=== PATIENT | male | born 1965 | race Caucasian/White ===

== ENCOUNTER 2022-09-27 09:51 | Emergency (ER) | payer OTHER, SELFPAY ==
[2022-09-27 09:57] VITALS: BP 161/101; PULSE 109; RESP 16; TEMP 36.6; O2SAT 95; BMI 20.2
--- NOTE | 2022-09-27 10:18 | ED.GENADULT ---
HPI - General Adult General Chief complaint: General Medical Stated complaint: chest pain Time Seen by Provider: 09/27/22 10:08 Source: patient and family Mode of arrival: ambulatory Limitations: no limitations History of Present Illness HPI narrative: 57-year-old male came in for evaluation of left-sided chest pain. 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 Patient smokes 1 pack a day of regular cigarette. Related Data Allergies Allergy/AdvReac Type Severity Reaction Status Date / Time No Known Allergies Allergy Verified 09/27/22 10:16 Review of Systems Review of Systems: All other systems are reviewed and are negative Constitutional: Reports as per HPI and Reports no additional constitutional complaints Eyes: Reports as per HPI and Reports no additional eye complaints Reports system reviewed and no additional complaints, except as documented Cardiovascular: Reports as per HPI and Reports no additional cardiovascular complaints Respiratory: Reports as per HPI and Reports no additional respiratory complaints Gastrointestinal: Reports as per HPI and Reports no additional gastrointestinal complaints Genitourinary: Reports no additional female genitourinary complaints Musculoskeletal: Reports no additional musculoskeletal complaints Skin/Breast: Reports system reviewed and no additional complaints, except as docu Psychiatric: Reports no additional psychiatric complaints Endocrine: Reports no additional endocrine complaints Hematologic/Lymphatic: Reports no additional hematologic/lymphatic complaints Allergic/Immunologic: Reports no additional allergic/immunologic complaints Reports system reviewed and no additional complaints, except as documented and Reports Abnormal speech present PMFSH Social History Social History Alcohol intake: current Alcohol intake frequency: holidays/special occasions only Smoked in Last 30 Days: Yes Use of substances other than those prescribed or required for medical reasons: Yes Substance Use Type: Marijuana Substance Use Frequency: Daily Advance Directives: No Advance Directives Information Provided: Yes Physical Exam ED Vital Signs: Vital Signs - 24 hr 09/27/22 09:57 09/27/22 13:46 Temperature 97.8 F Pulse Rate 109 H 53 Respiratory Rate 16 14 Blood Pressure 161/101 H 135/86 Pulse Oximetry 95 98 Oxygen Delivery Method Room Air Room Air BMI result Body Mass Index 20.2 Vital signs have been reviewed as appeared to be correct. Blood pressure normal. Heart rate normal. Respiration rate normal. Temperature normal. Oxygen saturation normal. Appearance: Anxious, Alert. Oriented X3. No acute distress. Head: Normal external exam. Normocephalic. Atraumatic. No Johnson signs noted. No raccoon eyes noted Eyes: PERRLA. EOMI. Conjunctiva and sclera normal. Eyelids normal. ENT: TM's Normal. Pharynx normal. Uvula midline. Moist mucous membranes. No trismus noted. No drooling noted. No muffled voice noted. Neck: Normal inspection. Neck supple. FROM. No adenopathy. Thyroid Normal. No meningeal signs. No neck mass noted. CVS: Normal heart rate and rhythm. Heart sound normal. No murmurs noted. Pulses normal throughout. Respiratory: No respiratory distress. Painless inspiration. Breath sounds normal. No wheezes/rales/rhonchi noted. Chest nontender. No accessory muscle usage noted or decreased air movement noted. Abdomen: Soft and nontender. Bowel sounds normal in all 4 quadrants. No distention noted. No organomegaly noted. No visible injury noted. Back: No CVA tenderness. Full range of motion noted. Skin: Skin warm and dry. Normal skin color. Normal skin turgor. No rashes/lesions/lacerations noted. Extremities: No lower extremity edema. Extremities exhibit normal range of motion. Extremities nontender. Neuro: Oriented X 3. Cranial nerve exam: II-XII are grossly intact No motor deficit. No sensory deficit. Reflexes normal. Course Reevaluation(s) Reevaluation #1: While the nurse was inserting the IV access patient become diaphoretic, pale, bradycardia at 28 beats per minute, patient had a brief tonic clonic activity witnessed by the nerve then patient regained consciousness few minutes after, patient was evaluated by me after the episode patient back to his baseline. Time: 10:41 Reevaluation #2: Patient feels more relaxed after was given Ativan, patient's symptoms are related to stress that the patient found in the new job that he just started 3 days ago. Patient will be quitting the job. Time: 15:31 Medications Administered Discontinued Medications Generic Name Dose Route Start Last Admin Trade Name Freq PRN Reason Stop Dose Admin Sodium Chloride 1,000 mls @ 999 mls/hr 09/27/22 10:17 09/27/22 12:03 Ns IV 09/27/22 11:17 Infused .Q1H1M ONE Infusion Sodium Chloride 1,000 mls @ 999 mls/hr 09/27/22 10:41 09/27/22 12:03 Ns IV 09/27/22 11:41 Infused .Q1H1M ONE Infusion Lorazepam 2 mg 09/27/22 10:17 09/27/22 10:26 Lorazepam 1 Mg Tablet PO 09/27/22 10:18 2 mg ONCE ONE Administration Medical Decision Making Differential Diagnosis Differential Diagnoses: The differential diagnosis associated with the presentation includes (ACS, dehydration, electrolyte abnormalities, anemia, anxiety, depression.) Admission/Observation Consideration of admission/observation: Escalation of care including admission/observation considered Lab Data MDM Lab Attestation statement: I reviewed the patient's lab results. 09/27/22 10:37 09/27/22 10:37 Labs: Lab Results 09/27/22 09/27/22 09/27/22 Range/Units 10:37 10:37 10:37 WBC 8.5 (4.8-10.8) X10*3/uL RBC 5.20 (4.60-5.80) X10*6/uL Hgb 15.8 (14.0-18.0) g/dl Hct 45.2 (42.0-52.0) % MCV 86.9 (80.0-98.0) fL MCH 30.4 (27.0-33.0) pg MCHC 35.0 (31.0-36.0) g/dl RDW 13.2 (11.0-16.0) % Plt Count 285 (160-400) X10*3/uL MPV 9.6 (9.4-12.4) fL Immature Gran % (Auto) 0.2 (0.0-0.4) % Neut % (Auto) 59.0 (45-73) % Lymph % (Auto) 27.0 (20-40) % Swain % (Auto) 10.7 (2-11) % Eos % (Auto) 2.4 (0-4) % Baso % (Auto) 0.7 (0-2) % Lymph # (Auto) 2.3 (1.2-4.9) X10*3/uL Swain # (Auto) 0.9 (0.1-1.2) X10*3/uL Eos # (Auto) 0.2 (0.0-0.4) X10*3/uL Baso # (Auto) 0.1 (0.0-0.2) X10*3/uL Abs Immat Gran (auto) 0.02 (0.00-0.03) X10*3/uL Absolute Neuts (auto) 5.0 (2.0-8.3) x10*3/uL Absolute Nucleated RBC 0.000 (0.0-0.012) X10*3/uL Nucleated RBC % (auto) 0.0 (0.0-0.2) /100WBC Sodium 139 (135-145) mmol/L Potassium 4.1 (3.3-5.1) mmol/L Chloride 107 (96-108) mmol/L Carbon Dioxide 20 L (22-29) mmol/L Anion Gap 16 (12-20) BUN 13 (9-16) mg/dL Creatinine 0.91 (0.5-1.4) mg/dL Estim Creat Clear Calc 77.1 Estimated GFR > 60 Random Glucose 102 (60-115) mg/dL Calcium 10.1 (8.4-10.2) mg/dL Total Bilirubin 2.7 H (0.0-1.0) mg/dL Direct Bilirubin 0.5 (0.0-0.5) mg/dL AST 22 (5-37) U/L ALT 12 (0-40) U/L Alkaline Phosphatase 86 (39-117) U/L Troponin I High Sens 6.9 (<3.5-35.0) ng/L B-Natriuretic Peptide (<100) pg/mL Total Protein 8.0 (6.5-8.0) g/dL Albumin 4.5 (3.5-5.0) g/dL Lipase 12 (8-78) U/L 09/27/22 Range/Units 10:37 WBC (4.8-10.8) X10*3/uL RBC (4.60-5.80) X10*6/uL Hgb (14.0-18.0) g/dl Hct (42.0-52.0) % MCV (80.0-98.0) fL MCH (27.0-33.0) pg MCHC (31.0-36.0) g/dl RDW (11.0-16.0) % Plt Count (160-400) X10*3/uL MPV (9.4-12.4) fL Immature Gran % (Auto) (0.0-0.4) % Neut % (Auto) (45-73) % Lymph % (Auto) (20-40) % Swain % (Auto) (2-11) % Eos % (Auto) (0-4) % Baso % (Auto) (0-2) % Lymph # (Auto) (1.2-4.9) X10*3/uL Swain # (Auto) (0.1-1.2) X10*3/uL Eos # (Auto) (0.0-0.4) X10*3/uL Baso # (Auto) (0.0-0.2) X10*3/uL Abs Immat Gran (auto) (0.00-0.03) X10*3/uL Absolute Neuts (auto) (2.0-8.3) x10*3/uL Absolute Nucleated RBC (0.0-0.012) X10*3/uL Nucleated RBC % (auto) (0.0-0.2) /100WBC Sodium (135-145) mmol/L Potassium (3.3-5.1) mmol/L Chloride (96-108) mmol/L Carbon Dioxide (22-29) mmol/L Anion Gap (12-20) BUN (9-16) mg/dL Creatinine (0.5-1.4) mg/dL Estim Creat Clear Calc Estimated GFR Random Glucose (60-115) mg/dL Calcium (8.4-10.2) mg/dL Total Bilirubin (0.0-1.0) mg/dL Direct Bilirubin (0.0-0.5) mg/dL AST (5-37) U/L ALT (0-40) U/L Alkaline Phosphatase (39-117) U/L Troponin I High Sens (<3.5-35.0) ng/L B-Natriuretic Peptide 37 (<100) pg/mL Total Protein (6.5-8.0) g/dL Albumin (3.5-5.0) g/dL Lipase (8-78) U/L Independent Interpretation I performed an independent interpretation of an: EKG (Sinus rhythm at 87 beats per minutes with frequent PVCs, LVH, normal intervals.) and Plain X-Ray (No acute intrathoracic pathology.) Radiology Impression Discussion of test interpretation with radiology: I have reviewed the radiologist's reading. Discharge Plan Discharge Clinical Impression: Anxiety about health, Stress and adjustment reaction Patient Disposition: Home, Self-Care Instructions: Anxiety (ED) Referrals: Frantz Tellez MD [Primary Care Provider] - Stand Alone Forms: Work/School Release
--- NOTE | 2022-09-27 11:00 | PC.NURSE ---
Addendum entered by Irina Harris RN 09/27/22 11:02: post event pt c/o worsening chest tightness. MD aware Original Note: PT ambulated in from home with . during IV insertion pt became pale, diaphoretic, HR dropped to low 20s, began with tonic-clonic movements. pt was rolled onto his side, MD made aware of event lasting only several of seconds. pt HR then stabilized, pt alert and oriented to baseline. HR strip printed and placed in chart.
[2022-09-27 13:46] VITALS: BP 135/86; PULSE 53; RESP 14; O2SAT 98
== END 2022-09-27 15:59 | disposition home or self-care (01) ==
PROVIDERS: Emergency Provider Emergency Medicine; PCP Internal Medicine
DX: F43.22 Adjustment disorder with anxiety (principal); F17.210 Nicotine dependence, cigarettes, uncomplicated; F12.90 Cannabis use, unspecified, uncomplicated; Z72.89 Other problems related to lifestyle; Z56.6 Other physical and mental strain related to work
CPT/HCPCS: 36415; 71045; 80048; 80076; 83690; 83880; 84484; 85025; 93005; 96360; 99284

== ENCOUNTER 2023-11-18 09:31 | Outpatient (REF) | payer OTHER, SELFPAY ==
--- NOTE | ~2023-11-18 | XR_ITS ---
EXAMINATION: XR HIP, LEFT CLINICAL INFORMATION: Left hip pain. COMPARISON: None available. TECHNIQUE: AP radiograph of the pelvis. AP and frog-lateral views of the left hip. FINDINGS: Superolateral joint space narrowing with small marginal osteophytes. Small chronic ossification along the posterior superior acetabular rim. No acute fracture or malalignment. Standard appearance of the right total hip arthroplasty. XR/XR hip LT min 2V IMPRESSION: [id number] left hip osteoarthritis. No acute abnormality. Electronically signed by: Atilio Roman MD 11/24/2023 10:44 AM EDT
== END 2023-11-18 09:32 | disposition home or self-care (01) ==
LOC: HO.XRAY 09:31
PROVIDERS: PCP Internal Medicine; Visit Provider Physician Assistant
DX: M25.552 Pain in left hip (principal)
CPT/HCPCS: 73502

== ENCOUNTER 2023-11-18 10:02 | Outpatient (AMB) | payer OTHER, SELFPAY ==
--- NOTE | 2023-11-18 10:06 | MHC.OFFVIS ---
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 Patient reports his left hip pain has been present for about 3 years. He was previously seen at [facility] and had a right hip replacement on 08/2015. Currently he has shooting pain that radiates down his leg. He states his symptoms are similar to his right hip prior to his replacement. Finds no relief with ibuprofen or Tylenol. Hx of degenerative disc disease. 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 He was previously seen at [facility] where he had a right CRISTIANA on 08/2015. He currently states he has shooting pain in his groin and buttock region that radiates down to his leg. He reports his symptoms are similar to his right hip prior to his replacement. His pain is aggravated with stairs, prolonged walking and getting in and out of his car. He finds no relief with ibuprofen or Tylenol. He has a history of degenerative disc disease. [facility] Surgical History (Updated 11/18/23 @ 10:09 by GANESH Cedillo) History of right hip replacement Social History (Updated 11/18/23 @ 10:10 by GANESH Cedillo) Alcohol intake: current Alcohol intake frequency: holidays/special occasions only Patient Tobacco Use Status: Current everyday Tobacco user Substance Use Type: Marijuana Current occupational status: unemployed Review of Systems Const All systems reviewed & are unremarkable except as noted in HPI and below Physical Exam Vital Signs: BMI result Body Mass Index 22.0 Const General: cooperative, healthy appearing, comfortable, no acute distress, well developed and alert Orientation/consciousness: patient oriented x3 HEENT Head: Yes normal to inspection, Yes normocephalic and Yes atraumatic Eyes General: appearance normal, both eyes and all related structures Resp Effort & Inspection: normal respiratory effort and able to speak in complete sentences Cardio Rate: regular rate Peripheral pulses: Peripheral pulses 2+ throughout GI Palpation (GI): Soft to palpation Skin Lesions: no lesions Rashes: no rashes Neuro General: patient oriented x3 Extrem Other: Left hip: Normal to inspection, ambulates with a slight limp. Has mild discomfort with internal and extension rotation of hip. No significant stiffness. Mild discomfort with hip flexion against resistance. NVI. Assessment & Plan Assessment & Plan (1) Left hip pain: Code(s): M25.552 - Pain in left hip Category: Medical Plan I did offer course physical therapy help work on hip stabilization exercises declined. We also discussed anti-inflammatories which he was not interested in as well as steroid injection which he declined. If symptoms persist or worsen, patient will contact the office to meet with Dr. Burger to discuss possible surgical intervention, otherwise follow-up as needed. Orders: Orders XR pelvis 1-2V Today M25.559 - Pain in unspecified hip XR hip LT min 2V Today M25.552 - Pain in left hip Patient Instructions: Scribed for Catalina Lala PA-C, by Matthew Wetzel medical assistant instructor, on 11/18/2023 at 10:15 AM EST.? I, Catalina Lala PA-C, have personally reviewed and agree with the information entered by the scribe. Coding Level of Care Code New Pt Level 3 (70136) Diagnoses Left hip pain M25.552
[2023-11-18 10:08] VITALS: BMI 22.0
== END 2023-11-18 10:59 | disposition home or self-care (01) ==
PROVIDERS: PCP Internal Medicine; Visit Provider Physician Assistant
DX: M25.552 Pain in left hip (principal)
CPT/HCPCS: 99203

== ENCOUNTER 2023-12-18 07:14 | Outpatient (REF) | payer OTHER, SELFPAY ==
--- NOTE | ~2023-12-18 | CT_ITS ---
EXAMINATION: CT CHEST WITHOUT CONTRAST CLINICAL INFORMATION: Disorder arteries COMPARISON: None available. TECHNIQUE: Multidetector volumetric CT imaging of the chest was done. Axial MIP volume rendering provided. Sagittal and coronal reformatted images were obtained. This CT examination was performed using dose optimization techniques as appropriate, variously including the following: *Automated exposure control *Adjustment of mA and/or kV according to patient size (this includes techniques or standardized protocols for targeted exams where dose is matched to indication/reason for exam; i.e. extremities or head) *Use of iterative reconstruction technique DLP: 138 mGy-cm FINDINGS: Submitted for interpretation on February 19, 2024. Limited by patient's breathing motion artifact. LUNGS: Paraseptal emphysematous changes in the lung apices. No consolidation, pleural effusion or pneumothorax. There is a subtle pulmonary mosaic pattern. No gross pulmonary nodules. No bronchiectasis. No honeycombing. Respiratory airways is grossly patent. Nonspecific prominent lymph nodes in the mediastinum the largest measures 11 mm in the right precarinal. No pericardial effusion. No gross calcifications in the coronary arteries. Calcified plaque in the inferior aspect of the thoracic aortic arch. No aneurysm in the thoracic aorta. The thyroid gland is not enlarged. Soft tissue fullness in the adrenal glands which measures 16 Hounsfield units, nonspecific. Multilevel cervical thoracic spondylosis without acute fracture or listhesis. No lytic or blastic lesions. CT/CT chest wo IV con IMPRESSION: No acute airspace disease or gross pulmonary nodules. Probable small airway disease versus small pulmonary artery disease. Bilateral apical lung scarring and paraseptal emphysematous changes. Fleischner guidelines were followed. Electronically signed by: Dawood Acuna MD 02/19/2024 12:12 PM [facility]
[2023-12-18 09:18] LABS: Alanine Aminotransferase 12 U/L (0-40); Albumin Level 4.5 g/dL (3.5-5.0); Alkaline Phosphatase 81 U/L (39-117); Anion Gap 11 (12-20); Aspartate Amino Transferase 16 U/L (5-37); Bilirubin Total 1.3 mg/dL (0.0-1.0); Blood Urea Nitrogen 10 mg/dL (9-16); Calcium 9.8 mg/dL (8.4-10.2); Carbon Dioxide 28 mmol/L (22-29); Chloride 105 mmol/L (96-108); Cholesterol 219 mg/dL (<200); Estimated Glomerular Filt Rate > 60; Glucose Random 85 mg/dL (60-115); HDL Cholesterol 39 mg/dL (>40); Potassium 4.4 mmol/L (3.3-5.1); Sodium 140 mmol/L (135-145); Thyroid Stimulating Hormone 4.22 uIU/mL (0.32-4.0); Total Protein 7.7 g/dL (6.5-8.0)
[2023-12-19 22:08] LABS: LDL Cholesterol Direct 155 mg/dL (<100)
== END 2023-12-18 07:15 | disposition home or self-care (01) ==
LOC: HO.CT 07:14
PROVIDERS: PCP Internal Medicine; Visit Provider Internal Medicine
DX: Z12.5 Encounter for screening for malignant neoplasm of prostate (principal); E78.00 Pure hypercholesterolemia, unspecified; I77.89 Other specified disorders of arteries and arterioles
CPT/HCPCS: 36415; 71250; 80053; 82465; 83718; 83721; 84153; 84443

== ENCOUNTER → 2023-12-18 07:17 | Outpatient (BNV) | payer OTHER, SELFPAY | PROVIDERS: PCP Internal Medicine; Visit Provider Radiology Diagnostic Radiology | DX: J44.9 Chronic obstructive pulmonary disease, unspecified (principal) | CPT/HCPCS: 71250 ==

== ENCOUNTER 2025-01-25 10:49 | Outpatient (REF) | payer OTHER, SELFPAY | END 2025-01-25 10:50 | disposition home or self-care (01) | LOC: HO.HOSX 10:49 | PROVIDERS: PCP Internal Medicine; Visit Provider Physician Assistant | DX: Z13.89 Encounter for screening for other disorder (principal) ==

== ENCOUNTER 2025-01-25 10:49 | Outpatient (AMB) | payer OTHER, SELFPAY ==
--- NOTE | 2025-01-25 10:55 | MHC.OFFVIS ---
Vital Signs 01/25/25 11:06 Height 5 ft 8 in Weight 123 lb BMI 18.7 Intake Visit Reasons: Newprob-Left shoulder/elbow pain/numbness Intake Note: Varinder is a 59 year old left hand dominant male who presents today as an established patient, new problem visit to evaluate left shoulder. Patient reports an injury to his shoulder on 01/07/25 when he lifted a box. Patient reports about a week after his injury his pain progressed down his arm. He complains of tightness in his arm and mild pain. He has weakness in his hand movement. He mentions recent 5 surgeries on his hand and 3 surgeries on his wrist. History of numbness in hands. No previous treatment. He has been using Tylenol and topical spray. Allergies onion Allergy (Uncoded 01/25/25 11:13) Unknown peas Allergy (Uncoded 01/25/25 11:13) Unknown Medication List - Last Reconciled 01/25/25 by Catalina Lala PA-C celecoxib (Celebrex) 200 mg PO BID 30 days HPI HPI Newprob-Left shoulder/elbow pain/numbness: Details: 59-year-old gentleman presents to the office today for discomfort in the left upper extremity which radiates down the arm and hand. States he was at work when he was lifting a box on 01/07 when he felt significant strain in the left upper extremity which went into the scapular region. He feels there is weakness/tightness in the left forearm and hand region. He denies numbness. [facility], [facility] Surgical History (Updated 01/25/25 @ 11:13 by GANESH Cedillo) History of surgery on wrist History of hand surgery History of right hip replacement Social History (Updated 01/25/25 @ 11:14 by GANESH Cedillo) Alcohol intake: current Alcohol intake frequency: holidays/special occasions only Patient Tobacco Use Status: Current everyday Tobacco user Substance Use Type: Marijuana Current occupational status: employed Current occupation: [employer]- receiving, left hand dominant Review of Systems Const All systems reviewed & are unremarkable except as noted in HPI and below Physical Exam Vital Signs: BMI result Body Mass Index 18.7 Extrem Other: Left shoulder full range of motion. Negative [place]'s. He does have pain along the periscapular region. He has full range of motion of the elbow and wrist. He can make a close fist and extend all digits. Assessment & Plan Assessment & Plan (1) Muscle strain of left scapular region: Code(s): S46.912A - Strain of unspecified muscle, fascia and tendon at shoulder and upper arm level, left arm, initial encounter Category: Medical Plan: I recommend a course of physical therapy to work on postural training and scapular stabilization. I also send him a prescription for Celebrex to help with inflammation around the scapula to help improve his function of the left upper extremity. I explained he may have some nerve irritation which is causing some weakness in the left upper extremity and this should resolve in time. If symptoms persist or worsen he can contact my office and I will schedule an EMG/nerve conduction study otherwise he will follow up as needed. Medications: New celecoxib (Celebrex) 200 mg PO BID 60 caps 3RF 30 days Coding Level of Care Code Est Pt Level 3 (79161) Complex EM visit Add On G2211 Diagnoses Muscle strain of left scapular region S46.912A
[2025-01-25 11:06] VITALS: BMI 18.7
--- OUTSIDE RECORDS SUMMARY | 2025-01-25 12:43 | XMS_ITS | Clinical Summary ---
Author Organization [facility] Address [address] [place] [id number] Phone Care Team Providers Care Cereal Maker Name Role Phone Frantz Tellez MD Primary Care Provider [phone] Allergies Active Allergy Reactions Criticality Noted Date Comments Peas 02/15/2019 Medications No known medications Immunizations Immunization Administration Dates Next Due Tdap 05/24/2019 Social History Tobacco Use Types Packs/Day Years Used Date Smoking Tobacco: Every Day Smokeless Tobacco: Never Alcohol Use Standard Drinks/Week Comments Yes 0 (1 standard drink = 0.6 oz pur e alcohol) Education Answer Date Recorded Are you interested in more education? Not on eddie e 07/18/2022 Are you concerned about learning? Not on file 07/18/2022 No 07/18/2022 No 07/18/2022 Digital Access Answer Date Recorded No 08/16/2022 No 08/16/2022 No 08/16/2022 Reliable internet access at home? Not on file 08/16/2022 Device with a working camera? Not on file Sex and Gender Information Value Date Recorded Sex Assigned at Male 02/15/2019 12:38 AM EST Legal Sex Male 12:32 AM EST Gender Identity Male 02/15/2019 12:38 AM EST Sexual Orientation Straight 02/15/2019 12 :38 AM EST Last Filed Vital Signs Vital Sign Reading Time Taken Comments Blood Pressure 139/93 05/24/2019 1:27 AM EST Pulse 77 05/24/2019 1:27 AM EST Temperature 36.4 C (97.5 F) 05/24/2019 1:27 AM EST Respiratory Rate 18 05/24/2019 1:27 AM EST Oxygen Saturation 97% 05/24/2019 1:27 AM EST Inhaled Oxygen Concentration - - Weight 64 kg (141 lb 1.5 oz) 05/24/2019 1:27 AM EST Height 172.7 cm (5' 8 ) 02/15/2019 12:36 AM EST Body Mass Index 21.45 02/15/2019 12:36 AM EST Plan of Treatment Health Maintenance Due Date Last Done Comments LIPID PANEL 1966 DEPRESSION SCREENING 1978 SMOKING Hx and SMOKELESS TOB ACCO SCREENING 1979 HEPATITIS C SCREENING 1984 HIV ONE-TIME SCREENING (18-6 5 YEARS) 1984 PNEUMOCOCCAL VACCINES (50+ y ears) (1 of 2 - PCV) 1985 COLOGUARD 2011 COLONOSCOPY 2011 COLORECTAL CANCER SCREENING 2011 FIT TEST 2011 FOBT 2011 SIGMOIDOSCOPY 2011 VIRTUAL COLONOSCOPY 2011 ZOSTER VACCINES (1 of 2) 2016 INFLUENZA VACCINE (#1) 2024 COVID-19 VACCINE (1 - 2024-2 6 season) 2024 Adult Td,Tdap Booster 05/23/2029 05/24/2019 RSV VACCINE (1 - 1-dose 75+ series) 2041 HEPATITIS A VACCINES Aged Out No long er eligible based on patient's age to complete this topic HIB VACCINES Aged Out No longer eligi ble based on patient's age to complete this topic MENINGOCOCCAL VACCINES (ACWY) Aged Out No longer eligible based on patient's age to complete this topic MENINGOCOCCAL VACCINES (B) Aged Out N o longer eligible based on patient's age to complete this topic Medical Devices Not on file Insurance [facility] [address] [place] [id number] [facility] [address] [place] [address] [place] [address] [employer] [address]ANCE [address] [place], [place] [id number] INSURANCE Care Teams Cereal Maker Relationship Specialty Start Date End Date Frantz Tellez MD [address] [place] [id number] PCP - General Internal Medicine 02/15/19 Additional Source Comments The information contained in this document represents components of the legal health record. It is not the complete legal health record.[facility]
== END 2025-01-25 12:13 | disposition home or self-care (01) ==
LOC: HO.HOS 10:50
PROVIDERS: PCP Internal Medicine; Visit Provider Physician Assistant
DX: S46.912A Strain of unspecified muscle, fascia and tendon at shoulder and upper arm level, left arm, initial encounter (principal)
CPT/HCPCS: 99214